=== PATIENT | female | born 1940 | race Caucasian/White ===

== ENCOUNTER 2017-10-06 13:09 | Outpatient (CLI) | payer MEDICARE | END 2017-10-06 13:10 | disposition home or self-care (01) | LOC: BICMAMMO 13:09 | PROVIDERS: ATTEND Nurse Practitioner Family | DX: Z12.31 Encounter for screening mammogram for malignant neoplasm of breast (principal) | CPT/HCPCS: 77063; 77067 ==

== ENCOUNTER 2019-07-03 11:53 | Outpatient (CLI) | payer MEDICARE ==
--- NOTE | 2019-07-03 12:48 | MMO ---
Bilateral MAMMO Bilat Screen [facility]. CLINICAL HISTORY: Patient is 79 years old and is seen for screening. The patient has no family history of breast cancer. The patient has no personal history of cancer. VIEWS: The views performed were: bilateral craniocaudal with tomosynthesis and bilateral mediolateral oblique with tomosynthesis. FILMS COMPARED: The present examination has been compared to a prior imaging study performed at [facility] on 10/06/2017. This study has been interpreted with the assistance of computer-aided detection. MAMMOGRAM FINDINGS: There are scattered fibroglandular densities. There are stable benign appearing calcifications seen in both breasts. There are no suspicious masses, suspicious calcifications, or new areas of architectural distortion. IMPRESSION: THERE IS NO MAMMOGRAPHIC EVIDENCE OF MALIGNANCY. A ROUTINE FOLLOW-UP MAMMOGRAM IN 1 YEAR IS RECOMMENDED. THE RESULTS OF THIS EXAM WERE SENT TO THE PATIENT. ACR BI-RADS Category 2 - Benign finding MAMMOGRAPHY NOTE: 1. A negative mammogram report should not delay a biopsy if a dominant of clinically suspicious mass is present. 2. Approximately 10% to 15% of breast cancers are not detected by mammography. 3. Adenosis and dense breasts may obscure an underlying neoplasm. Reported by: BREE PARIKH MD Electonically Signed: [id number]
== END 2019-07-03 11:54 | disposition home or self-care (01) ==
LOC: BICMAMMO 11:53
PROVIDERS: ATTEND Nurse Practitioner Family
DX: Z12.31 Encounter for screening mammogram for malignant neoplasm of breast (principal)
CPT/HCPCS: 77063; 77067

== ENCOUNTER 2022-04-29 08:33 | Outpatient (CLI) | payer MEDICARE ==
[2022-04-29] MEDS ORDERED: Iopamidol 370 76% 100 ML VIAL ONE (15:52)
== END 2022-04-29 08:34 | disposition home or self-care (01) ==
LOC: CT 08:33
PROVIDERS: ATTEND Internal Medicine
DX: K63.89 Other specified diseases of intestine (principal)
CPT/HCPCS: 71260; 74177; 82565; Q9967

== ENCOUNTER 2022-06-11 14:00 | Inpatient (IN) | payer MEDICARE ==
[2022-06-21 12:17] VITALS: BMI 29.5
[2022-06-22] MEDS ORDERED: Ketorolac Tromethamine 30 MG/ML VIAL ONE ×2 (11:34→18:29)
[2022-06-22] MEDS ORDERED: Acetaminophen 500 MG TAB ONE (11:34)
[2022-06-22 11:57] LABS: SARS-CoV-2 NAA Rapid Test Not Detected (NotDetected)
[2022-06-22] MEDS ORDERED: Midazolam HCl 2 mg/2 ml Vial ONE (12:22)
[2022-06-22] MEDS ORDERED: Fentanyl 100 MCG/2 ML VIAL ONE (12:22)
[2022-06-22] MEDS ORDERED: Bupivacaine 0.25% HCL 30 ML VIAL ONE (12:23)
[2022-06-22] MEDS ORDERED: Bupivacaine PF 0.5% 30 ML VIAL ONE (12:23)
[2022-06-22] MEDS ORDERED: Ondansetron PF 4 MG/2 ML Vial ONE ×3 (13:20→19:50)
[2022-06-22] MEDS ORDERED: Lidocaine 2% Jelly 5 ML TUBE ONE (14:06)
[2022-06-22] MEDS ORDERED: fentaNYL PF 100 MCG/2 ML SYRINGE ONE ×3 (14:12→14:59)
[2022-06-22] MEDS ORDERED: Sodium Chloride 0.9% 100 ML ONE (14:21)
[2022-06-22] MEDS ORDERED: cefOXitin 2 GM VIAL ONE (14:21)
[2022-06-22] MEDS ORDERED: ePHEDrine 50 MG/ML VIAL ONE (14:36)
[2022-06-22] MEDS ORDERED: Succinylcholine Chloride 100 MG/5 ML SYRINGE FS ONE (14:36)
[2022-06-22] MEDS ORDERED: Lidocaine 1% PF 5 ML VIAL ONE (14:36)
[2022-06-22] MEDS ORDERED: PROPOFOL 200 MG/20 ML VIAL ONE (14:36)
[2022-06-22] MEDS ORDERED: Dexamethasone 20 MG/5 ML VIAL ONE (14:36)
[2022-06-22] MEDS ORDERED: Rocuronium Bromide 10 MG/ML (10ML VIAL) ONE (14:36)
[2022-06-22] MEDS ORDERED: SUGAMMADEX SODIUM 200 MG/2 ML VIAL ONE (14:59)
[2022-06-22] MEDS ORDERED: Dexmedetomidine 200 MCG/2 ML VIAL ONE (14:59)
[2022-06-22] MEDS ORDERED: EPINEPHrine 1 MG/ML AMP ONE (15:01)
[2022-06-22] MEDS ORDERED: Lidocaine 1% (PF) 30 ML VIAL ONE (15:01)
[2022-06-22] MEDS ORDERED: EPINEPHrine 1 MG/10 ML Abboject SYRINGE ONE (15:01)
[2022-06-22] MEDS ORDERED: Promethazine HCl 25 MG/ML VIAL IM PRN ×2 (18:13→18:25)
[2022-06-22] MEDS ORDERED: Ondansetron HCl/PF 4 MG/2 ML Vial IVP PRN (18:13)
[2022-06-22] MEDS ORDERED: Ipratropium/Albuterol 3 ML NEB NEB PRN (18:25)
[2022-06-22] MEDS ORDERED: Morphine 2 MG/ML VIAL SLOW IVP PRN (18:25)
[2022-06-22] MEDS ORDERED: Morphine 4 MG/ML VIAL SLOW IVP PRN (18:25)
[2022-06-22] MEDS ORDERED: Insulin Regular 300 UNITS/3 ML VIAL SC PRN (18:25)
[2022-06-22] MEDS ORDERED: Ondansetron PF 4 MG/2 ML Vial IVP PRN (18:25)
[2022-06-22] MEDS ORDERED: hydrALAZINE 20 MG/ML VIAL SLOW IVP PRN (18:25)
[2022-06-22] MEDS ORDERED: Ketorolac Tromethamine 30 MG/ML VIAL IVP SCH (18:30)
[2022-06-22] MEDS: Sodium Chloride 0.9% 1,000 ML IV SCH (20:05)
[2022-06-22] MEDS: Famotidine/PF 20 mg/2ml Vial SLOW IVP SCH (21:55)
[2022-06-22] MEDS: Rosuvastatin 20 MG TAB PO SCH (21:56)
[2022-06-22] MEDS: Magnesium Oxide 250 MG TAB PO SCH (21:56)
[2022-06-22] MEDS: Famotidine 20 MG TAB PO SCH (21:56)
[2022-06-23] MEDS: Ketorolac Tromethamine 30 MG/ML VIAL IVP SCH ×4 (00:28→17:02)
[2022-06-23] MEDS: Sodium Chloride 0.9% 1,000 ML IV SCH ×3 (03:36→15:08)
[2022-06-23 07:29] LABS: #Lymphocytes 0.4 thou/uL (1.20-3.40); #Monocytes 0.5 thou/uL (0.11-0.59); #Neutrophils 11.4 thou/uL (1.40-6.50); %Basophils 0.1 % (0.0-1.0); %Eosinophils 0.1 % (0.0-10.0); %Lymphocytes 3.5 % (21.0-51.0); %Monocytes 4.2 % (0.0-10.0); %Neutrophils 92.2 % (42.0-75.0); Hemoglobin 11.9 g/dL (12.0-16.0); Mean Corpuscular HGB CONC 31.9 g/dL (32.0-36.0); Mean Corpuscular Hemoglobin 29.8 pg (27.0-31.0); Mean Corpuscular Volume 93.6 fl (78.0-98.0); Mean Platelet Volume 8.1 fL (7.4-10.4); Platelet Count 259 10x3/uL (130-400); RBC Distribution Width 14.6 % (11.5-14.5); White Blood Cell (WBC) Count 12.4 10x3/uL (4.8-10.8)
[2022-06-23 07:44] LABS: Anion Gap 13 mmol/L (10-20); BUN (Urea Nitrogen) 8 mg/dL (9.8-20.1); Calc. Creatinine Clearance 76 mL/min (70-130); Calcium 8.5 mg/dL (7.8-10.44); Carbon Dioxide 22 mmol/L (23-31); Chloride 107 mmol/L (98-107); Estimated GFR 86; Glucose 205 mg/dL (83-110); Potassium 3.9 mmol/L (3.5-5.1); Sodium 138 mmol/L (136-145)
[2022-06-23] MEDS: Famotidine/PF 20 mg/2ml Vial SLOW IVP SCH (08:04)
[2022-06-23] MEDS: Hydrochlorothiazide 25 MG TAB PO SCH (08:04)
[2022-06-23] MEDS: Famotidine 20 MG TAB PO SCH ×2 (08:04→21:23)
[2022-06-23] MEDS ORDERED: FLU VACC QS2022-23(65YR UP)/PF 240 MCG/0.7 ML SYRINGE IM ONE (09:00)
[2022-06-23] MEDS ORDERED: HYDROcodone/Acetaminophen 7.5/325 mg Tablet PO PRN (17:56)
[2022-06-23] MEDS: Magnesium Oxide 250 MG TAB PO SCH (21:24)
[2022-06-23] MEDS: Rosuvastatin 20 MG TAB PO SCH (21:24)
[2022-06-24] MEDS: Ketorolac Tromethamine 30 MG/ML VIAL IVP SCH ×3 (00:06→11:07)
[2022-06-24] MEDS: Famotidine 20 MG TAB PO SCH (08:42)
[2022-06-24] MEDS: Hydrochlorothiazide 25 MG TAB PO SCH (08:42)
[2022-06-24] MEDS: Sodium Chloride 0.9% 1,000 ML IV SCH (10:29)
[2022-06-24 11:40] VITALS: BP 146/67; TEMP 98.4
== END 2022-06-24 11:38 | disposition home or self-care (01) | DRG 331 ==
LOC: SURG A 06-22 10:40 → SURG B 06-22 20:22
PROVIDERS: ADMIT Specialist; ATTEND Specialist
PROC: 0DTF0ZZ Resection of Right Large Intestine, Open Approach (ICD-10-PCS; principal; 2022-06-22)
PROC: 8E0W0CZ Robotic Assisted Procedure of Trunk Region, Open Approach (ICD-10-PCS; 2022-06-22)
DX: C18.0 Malignant neoplasm of cecum (principal); E11.9 Type 2 diabetes mellitus without complications; I10 Essential (primary) hypertension; Z20.822 Contact with and (suspected) exposure to COVID-19; Z79.899 Other long term (current) drug therapy; Z79.84 Long term (current) use of oral hypoglycemic drugs; Z79.82 Long term (current) use of aspirin
CPT/HCPCS: 36415; 36416; 80048; 85025; 88309; J0171; J0694; J1100; J1650; J1885; J2001; J2250; J2405; J2704; J3010; J3490; J7050; S0020; S0028; U0002

== ENCOUNTER 2022-06-18 12:54 | Outpatient (CLI) | payer MEDICARE ==
[2022-06-18 14:34] LABS: #Basophils 0.1 10x3/uL (0.0-0.2); #Eosinphils 0.3 10x3/uL (0.0-0.5); #Monocytes 0.4 10x3/uL (0.0-1.1); #Neutrophils 4.5 10x3/uL (1.5-8.4); %Basophils 1.1 % (0.0-2.0); %Eosinophils 4.7 % (0.0-6.0); %Lymphocytes 18.7 % (18.0-47.0); %Monocytes 6.6 % (0.0-10.0); %Neutrophils 68.4 % (40.0-75.0); Hemoglobin 12.4 g/dL (12.0-15.5); Mean Corpuscular Hemoglobin 29.1 pg (27.0-33.0); Mean Corpuscular Volume 90.8 fl (81.6-98.3); Platelet Count 283 10x3/uL (150-450); RBC Distribution Width 16.4 % (11.5-14.5); Red Blood Cell (RBC) Count 4.26 10x6/uL (3.90-5.03); White Blood Cell (WBC) Count 6.6 10x3/uL (3.5-10.5)
[2022-06-18 14:44] LABS: Anion Gap 14 mmol/L (10-20); BUN (Urea Nitrogen) 15 mg/dL (9.8-20.1); Calc. Creatinine Clearance 0 mL/min (70-130); Calcium 9.5 mg/dL (7.8-10.44); Carbon Dioxide 26 mmol/L (23-31); Chloride 104 mmol/L (98-107); Estimated GFR 66; Glucose 187 mg/dL (83-110); Potassium 3.8 mmol/L (3.5-5.1); Sodium 140 mmol/L (136-145)
[2022-06-18 20:02] LABS: Hemoglobin A1c 6.8 % (4.0-6.0)
== END 2022-06-18 12:55 | disposition home or self-care (01) ==
LOC: LABBT 12:54
PROVIDERS: ATTEND Specialist
DX: Z01.818 Encounter for other preprocedural examination (principal); C18.0 Malignant neoplasm of cecum
CPT/HCPCS: 80048; 83036; 85025; 93005; 93010

== ENCOUNTER 2022-08-10 07:01 | Day surgery (SDC) | payer MEDICARE ==
[2022-08-09 10:07] VITALS: BMI 30.7
[2022-08-10] MEDS ORDERED: Ketorolac Tromethamine 30 MG/ML VIAL ONE (07:26)
[2022-08-10] MEDS ORDERED: Acetaminophen 500 MG TAB ONE (07:27)
[2022-08-10] MEDS ORDERED: Heparin 5,000 UNITS/ML VIAL ONE (08:26)
[2022-08-10] MEDS ORDERED: Lidocaine 2% PF 5 ML VIAL ONE (08:27)
[2022-08-10] MEDS ORDERED: Bupivacaine/Epinephrine 0.25% 30 ML VIAL ONE (08:27)
[2022-08-10] MEDS ORDERED: PROPOFOL 40 ML ONE (08:34)
[2022-08-10] MEDS ORDERED: fentaNYL PF 100 MCG/2 ML SYRINGE ONE (08:34)
[2022-08-10] MEDS ORDERED: CEFAZOLIN 2 GM VIAL ONE (08:36)
[2022-08-10] MEDS ORDERED: Sodium Chloride 0.9% 100 ML ONE (08:36)
[2022-08-10] MEDS ORDERED: ePHEDrine 50 MG/ML VIAL ONE (08:49)
[2022-08-10] MEDS ORDERED: PROPOFOL 200 MG/20 ML VIAL ONE (08:49)
== END 2022-08-10 11:00 | disposition home or self-care (01) ==
LOC: SDC 07:01
PROVIDERS: ATTEND Specialist
PROC: 0JH63WZ Insertion of Totally Implantable Vascular Access Device into Chest Subcutaneous Tissue and Fascia, Percutaneous Approach (ICD-10-PCS; principal; 2022-08-10)
PROC: 02HV33Z Insertion of Infusion Device into Superior Vena Cava, Percutaneous Approach (ICD-10-PCS; 2022-08-10)
PROC: B5181ZA Fluoroscopy of Superior Vena Cava using Low Osmolar Contrast, Guidance (ICD-10-PCS; 2022-08-10)
DX: C18.0 Malignant neoplasm of cecum (principal); C77.9 Secondary and unspecified malignant neoplasm of lymph node, unspecified; Z91.018 Allergy to other foods; Z79.82 Long term (current) use of aspirin; Z79.899 Other long term (current) drug therapy; Z90.49 Acquired absence of other specified parts of digestive tract
CPT/HCPCS: 36561; 71045; C1788; J1642; J1644; J1885; J2001; J2704; J3490

== ENCOUNTER 2023-07-06 08:43 | Outpatient (CLI) | payer MEDICARE ==
[2023-07-06] MEDS ORDERED: Iopamidol 370 76% 100 ML VIAL ONE (09:07)
== END 2023-07-06 08:44 | disposition home or self-care (01) ==
LOC: CT 08:43
PROVIDERS: ATTEND Internal Medicine
DX: C18.9 Malignant neoplasm of colon, unspecified (principal); J98.11 Atelectasis; I25.10 Atherosclerotic heart disease of native coronary artery without angina pectoris; K57.30 Diverticulosis of large intestine without perforation or abscess without bleeding; M43.16 Spondylolisthesis, lumbar region; M47.9 Spondylosis, unspecified; N28.89 Other specified disorders of kidney and ureter; Z98.890 Other specified postprocedural states; Z90.710 Acquired absence of both cervix and uterus; Z90.49 Acquired absence of other specified parts of digestive tract
CPT/HCPCS: 71260; 74177; 82565

== ENCOUNTER 2024-07-19 09:20 | Outpatient (CLI) | payer OTHER | END 2024-07-19 09:21 | disposition home or self-care (01) | LOC: CT 09:20 | PROVIDERS: ATTEND Internal Medicine | DX: C18.9 Malignant neoplasm of colon, unspecified (principal); I70.90 Unspecified atherosclerosis | CPT/HCPCS: 71260; 74177 ==

== ENCOUNTER 2024-12-31 09:02 | Outpatient (CLI) | payer OTHER ==
[2024-12-31] MEDS ORDERED: Iopamidol 370 76% 100 ML VIAL ONE (09:57)
[2024-12-31 10:51] LABS: Estimated GFR - POC 88.0
== END 2024-12-31 09:03 | disposition home or self-care (01) ==
LOC: CT 09:02
PROVIDERS: ATTEND Internal Medicine
DX: C18.9 Malignant neoplasm of colon, unspecified (principal)
CPT/HCPCS: 36415; 71260; 74177; 82565; Q9967